=== PATIENT | female | born 1960 | race Caucasian/White ===

== ENCOUNTER 2019-09-14 14:21 | Observation (INO) | payer OTHER, SELFPAY ==
[2019-09-14] VITALS (9 sets, daily range): BP systolic 132–164; BP diastolic 79–110; PULSE 76–135; RESP 16–28; TEMP 36.4–36.7; O2SAT 96–99; BMI 35.6
--- NOTE | ~2019-09-14 | XR_ITS ---
XR chest 2V DATE: 09/14/2019 15:43 INDICATION: Shortness of breath. Irregular heart rate. TECHNIQUE: PA and lateral views COMPARISON: None FINDINGS: Surgical clips, right upper quadrant, consistent with cholecystectomy. Heart size is within normal range. No hilar or mediastinal enlargement. No pulmonary infiltrate or consolidation, pleural effusion or pulmonary vascular congestion or pneumo thorax. IMPRESSION: No active cardiopulmonary disease Reviewed, dictated and finalized at location A.
--- NOTE | 2019-09-14 14:34 | ECG_ITS ---
Measurements Intervals [place] Rate: 107 P: CT: 0 QRS: -22 QRSD: 82 T: 9 QT: 303 QTc: 406 Interpretive Statements ATRIAL FIBRILLATION WITH RAPID VENTRICULAR RESPONSE RSR' IN V1 OR V2, CONSIDER RIGHT VENTRICULAR HYPERTROPHY OR RIGHT VCD LOW QRS VOLTAGE IN PRECORDIAL LEADS BORDERLINE T WAVE ABNORMALITY- ANT/INF LEADS BASELINE WANDER- V3-V6 ABNORMAL ECG Electronically Signed On 09-14-2019 15:28:04 CDT by Huan Larson D.O.
[2019-09-14] MEDS: ASPIRIN 81 MG CHEWABLE TABLET 324 MG PO (14:37)
[2019-09-14 14:44] LABS: Basophils Percent Auto 0.3 % (0.2-1.2); Eosinophils Absolute Auto 0.1 K/mm3 (0-0.3); Eosinophils Percent Auto 1.2 % (0-4.4); Hematocrit 44.9 % (37.0-47.0); Hemoglobin 15.5 g/dL (12.0-15.0); Immature Granulocyte Absolute 0.02 K/mm3 (0.00-0.031); Immature Granulocyte Percent A 0.2 % (0-0.5); Lymphocytes Absolute Auto 3.31 K/mm3 (0.9-3.2); Lymphocytes Percent Auto 33.7 % (18.3-44.2); Mean Corpuscular HGB Conc 34.5 g/dl (32-36); Mean Corpuscular Hemoglobin 30.8 pg (26-34); Mean Corpuscular Volume 89.1 fl (80-100); Mean Platelet Volume 9.5 fl (7.4-10.4); Monocytes Absolute Auto 0.6 K/mm3 (0.1-0.6); Monocytes Percent Auto 6.4 % (2.6-8.5); Neutrophils Absolute Auto 5.7 K/mm3 (1.3-6.7); Neutrophils Percent Auto 58.2 % (45.5-73.1); Platelet Count Result 280 k/mm3 (150-375); Red Blood Count 5.04 M/mm3 (4.2-5.4); Red Cell Distribution Width 12.2 % (11.5-14.5); White Blood Count 9.8 K/mm3 (4.5-10.0)
--- NOTE | 2019-09-14 14:45 | ED.ARRPALP ---
HPI - Arrhythmia/Palpitations General Chief Complaint: Arrhythmia/Palpitations Stated Complaint: sob, cough Time Seen by Provider: 09/14/19 14:35 Source: patient Mode of arrival: ambulatory Limitations: no limitations History of Present Illness HPI narrative: Patient is a 59-year-old female who presents to the emergency department with complaint of shortness of breath and irregular heartbeat. Patient reports onset of symptoms 3 days ago. Patient has noted the palpitations seem somewhat intermittent in nature as does the shortness of breath. Patient thought perhaps maybe it was acid reflux and tried taking acid reducers without any relief. Patient denies any prior history of any cardiac issues, specifically atrial fibrillation. Patient has a sister with a history of atrial fibrillation. Patient denies any significant alcohol use, caffeine intake, decongestant use, stimulant use of any kind. complaint: irregular heart beat Onset (ago): day(s) Duration: intermittent Context: occurred during rest Associated symptoms: shortness of breath and other (Heartburn) Treatments prior to arrival: other (Acid reducers) Related Data Home Medications Medication Instructions Recorded Confirmed No Home Medications 09/14/19 09/14/19 Allergies Allergy/AdvReac Type Severity Reaction Status Date / Time bromide salts Allergy Dyspnea / Verified 09/14/19 14:36 SOB Review of Systems Review of Systems: All systems reviewed & are unremarkable except as noted in HPI and below Cardiovascular: Cardiovascular: Denies pedal edema, Denies edema, Reports irregular heart rhythm and Denies leg edema Respiratory: Respiratory: Denies cough and Reports dyspnea Gastrointestinal: Gastrointestinal: Denies abdominal pain and Denies vomiting PMFSH Past Medical History Medical History (Updated 09/14/19 @ 18:40 by Ramandeep Read MD) No significant past medical history Surgical History Surgical History (Updated 09/14/19 @ 15:13 by Ramandeep Read MD) History of cholecystectomy Family History Family History (Updated 09/14/19 @ 17:45 by Leyla Sparks RN) Mother Acute myocardial infarction Hypertension Mother Cerebrovascular accident Father Chronic obstructive pulmonary disease Social History Social History (Updated 09/14/19 @ 15:14 by Ramandeep Read MD) Smoking status: Never smoker Alcohol intake: current Drinks per week: 1 Alcohol use details: rare, mild Substance use: never Substance use type: does not use Gender identity (if verbalized by the patient): Female Spiritual care concerns: No Exam Const: General: cooperative, no acute distress and alert Nutritional Appearance: obese Orientation/consciousness: patient oriented x3 Limitations: no limitations Resp: Effort & Inspection: normal respiratory effort Auscultation: clear to auscultation bilaterally Cardio: Rate: tachycardic Rhythm: abnormal rhythm irregularly irregular Peripheral pulses: dorsalis pedis present bilateral 2+ GI: GI Palp: Yes Soft to palpation and No Tenderness to palpation present (GI) Auscultation: normal bowel sounds Skin: General skin exam: normal color and no rashes or lesions noted Neuro: General: patient oriented x3 Cognition (Neuro): normal cognition Speech: normal speech Extrem: General: normal to inspection, full ROM and pedal edema bilaterally pitting Psych: Mental Status: mental status grossly normal Affect: normal affect Attitude: cooperative Course Course Emergency Course: Patient given 10 mg of Cardizem IV with improvement in her heart rate. Heart rate decreased into the 80s, but increased back up to 100s. Additional Cardizem ordered. Patient has shortness of breath and lower extremity swelling suggestive of some degree of congestive heart failure and BNP is elevated. Patient does not have any hypoxia or pulmonary edema noted on chest x-ray. Patient will be admitted to hospitalist
[2019-09-14 14:54] LABS: INR 0.9; Partial Thromboplastin Time 23.1 SECONDS (22.3-36.8); Prothrombin Time 12.2 Seconds (11.1-14.7)
[2019-09-14 14:58] LABS: Blood Urea Nitrogen 19 mg/dL (7-17); Calcium 9.2 mg/dL (8.4-10.2); Carbon Dioxide 27 mmol/L (22-30); Chloride 105 mmol/L (98-107); Estimated CRCL calculation 69 ml/min; Estimated Glomerular Filt Rate 57; Glucose 114 mg/dL (65-105); Potassium 3.9 mmol/L (3.4-5.0); Sodium 139 mmol/L (137-145)
[2019-09-14 15:09] LABS: Troponin I < 0.012 ng/mL (0.000-0.034)
--- NOTE | 2019-09-14 15:09 | PC.NURSE ---
Called lab to add on orders
[2019-09-14 15:21] LABS: D Dimer 0.27 ug/mL (<0.48)
[2019-09-14 15:25] LABS: Alanine Aminotransferase 21 U/L (4-35); Albumin Level 4.5 g/dL (3.5-5.1); Alkaline Phosphatase 68 U/L (38-126); Aspartate Amino Transferase 25 U/L (14-36); Bilirubin,Total 0.4 mg/dL (0.2-1.3); Magnesium 1.9 mg/dL (1.6-2.3)
[2019-09-14 15:34] LABS: NT Pro B Type Natriuretic Pept 1160 PG/ML (5-100)
--- NOTE | 2019-09-14 17:54 | ADMGEN ---
This patient, Aure Contreras, was admitted to IMU Room 209-01. Patient/family oriented to hospital policies and general routines including ID bracelet, bed and alarms, visiting hours, pain management, procedures, bathroom and other care routines, personal items, smoking policy, room service/diet, and visiting hours. Valuables list has been completed. Information on how to activate the Rapid Response Team has been discussed. Patient/Family are encouraged to report perceived risks to care and to ask questions if they do not understand what they are told or what they should do.
[2019-09-14 18:09] LABS: Troponin I < 0.012 ng/mL (0.000-0.034)
[2019-09-14 20:34] LABS: Troponin I < 0.012 ng/mL (0.000-0.034)
[2019-09-14] MEDS: METOPROLOL TARTRATE 25 MG TABLET PO (20:45)
--- NOTE | 2019-09-14 23:34 | PM.IMHP ---
H&P: HPI History of Present Illness Chief complaint: atrial fibrillation with rvr Narrative: Aure Contreras is a 59 year old female she has no prior medical history. She has never had any irregular heart rate. The patient stated that she has ?panic attacks?. Where she feels anxious and feels palpitations. She denies any nausea vomiting or diarrhea. No fever chills. Her sister has atrial fibrillation but the patient has never had atrial fib pressure. The patient stated that she started feeling ill on Thursday. She felt some palpitations. She thought maybe wishes her nerves. Patient is going through divorce and living with her son right now. The patient stated that on Thursday morning the palpitations slow down some and she could tolerate them. So she went to work and the symptoms never went away. The patient stated that his symptoms remain for the last 3 days and so she decided that she needed to come to the emergency room. Then she thought maybe it is just her nurse her acid reflux. She said that she could feel the palpitations throughout her whole body. She felt like her whole body was pounding. The patient has not had an echo in 5 years. She has a take any home medications. She was given an aspirin and given 2 doses of IV Cardizem push cardiology has been consulted. Oral medication has been ordered for the patient. No acute cardiopulmonary disease. X2. BNP is 1160. Patient denies any shortness of breath at this time. No chest pain at this time. She denies taking any [id number]-neb-[id number] medication any caffeine intake, decongestant use, illicit drugs. Her any kind of stimulants of any kind. She denies using any energy drinks. Patient stated that she occasionally does get short of breath but is not short of breath now. Patient stated that she has been having these episodes on and off for years but the 3rd just panic attacks. Date of service 09/14/2019 Review of Systems Review of Systems: All systems reviewed & are unremarkable except as noted in HPI and below Constitutional: Constitutional: Reports as per HPI and Reports no additional constitutional complaints Eyes: Eyes: Reports as per HPI and Reports no additional eye complaints ENT: Reports system reviewed and no additional complaints, except as documented and Reports Normal hearing present Cardiovascular: Cardiovascular: Reports no additional cardiovascular complaints Respiratory: Respiratory: Reports no additional respiratory complaints and Reports no additional respiratory complaints Gastrointestinal: Gastrointestinal: Reports as per HPI and Reports no additional gastrointestinal complaints Musculoskeletal: Musculoskeletal: Reports no additional musculoskeletal complaints Integumentary/Breasts: Skin/Breast: Reports system reviewed and no additional complaints, except as docu and Reports as per HPI Neurologic: Reports system reviewed and no additional complaints, except as documented, Reports as per HPI and Reports Normal hearing present Psychiatric: Psychiatric: Reports no additional psychiatric complaints and Reports as per HPI Endocrine: Endocrine: Reports no additional endocrine complaints Hematologic/Lymphatic: Hematologic/Lymphatic: Reports no additional hematologic/lymphatic complaints Allergic/Immunologic: Allergic/Immunologic: Reports no additional allergic/immunologic complaints [facility] Past Medical History Medical History (Updated 09/14/19 @ 23:42 by Nancy Dsouza NP) Anxiety Carpal tunnel syndrome No significant past medical history Surgical History Surgical History (Updated 09/14/19 @ 23:42 by Nancy Dsouza NP) History of carpal tunnel release Right hand History of cholecystectomy Family History Family History Mother Acute myocardial infarction Hypertension Mother Cerebrovascular accident Father Chronic obstructive pulmonary disease Social History Social History (Updated
[2019-09-15] VITALS (13 sets, daily range): BP systolic 117–145; BP diastolic 68–97; PULSE 63–128; RESP 16–20; TEMP 35.9–36.6; O2SAT 96–100
[2019-09-15 05:40] LABS: Basophils Percent Auto 0.4 % (0.2-1.2); Eosinophils Absolute Auto 0.2 K/mm3 (0-0.3); Eosinophils Percent Auto 1.6 % (0-4.4); Hematocrit 43.1 % (37.0-47.0); Hemoglobin 14.3 g/dL (12.0-15.0); Immature Granulocyte Absolute 0.03 K/mm3 (0.00-0.031); Immature Granulocyte Percent A 0.3 % (0-0.5); Lymphocytes Percent Auto 39.9 % (18.3-44.2); Mean Corpuscular HGB Conc 33.2 g/dl (32-36); Mean Corpuscular Hemoglobin 30.6 pg (26-34); Mean Corpuscular Volume 92.3 fl (80-100); Monocytes Absolute Auto 0.8 K/mm3 (0.1-0.6); Monocytes Percent Auto 8.2 % (2.6-8.5); Neutrophils Absolute Auto 4.9 K/mm3 (1.3-6.7); Neutrophils Percent Auto 49.6 % (45.5-73.1); Platelet Count Result 252 k/mm3 (150-375); Red Blood Count 4.67 M/mm3 (4.2-5.4); Red Cell Distribution Width 12.4 % (11.5-14.5); White Blood Count 9.8 K/mm3 (4.5-10.0)
[2019-09-15 05:56] LABS: Alanine Aminotransferase 17 U/L (4-35); Albumin Level 3.8 g/dL (3.5-5.1); Alkaline Phosphatase 54 U/L (38-126); Aspartate Amino Transferase 22 U/L (14-36); Bilirubin,Total 0.7 mg/dL (0.2-1.3); Blood Urea Nitrogen 20 mg/dL (7-17); Calcium 9.1 mg/dL (8.4-10.2); Carbon Dioxide 29 mmol/L (22-30); Chloride 105 mmol/L (98-107); Estimated CRCL calculation 68 ml/min; Estimated Glomerular Filt Rate 57; Glucose 97 mg/dL (65-105); Magnesium 2.1 mg/dL (1.6-2.3); Sodium 139 mmol/L (137-145)
--- NOTE | 2019-09-15 08:22 | PM.CNCAR ---
Assessment and Plan Assessment and plan (1) Atrial fibrillation with rapid ventricular response: Code(s): I48.91 - Unspecified atrial fibrillation Status: Acute Assessment and Plan: 59 y/o female with no significant past medical history who presents with palpitations and dyspnea on exertion who was found to be in A fib with RVR Will check 2D echo to rule out structural heart disease Heart rate better compared to yesterday. Will increase Metoprolol to 50 mg BID for better rate control. Continue full dose ASA for now given CHADSVASC of 0. If echo shows LV dysfunction then would start AC as in that case she will benefit from rhythm control approach with cardioversion. BNP is 1100 but no evidence of volume overload on exam. Will follow 2D echo Given no clear underlying etiology of A fib, she would benefit from ischemic evaluation at some point (likely outpatient once HR better controlled) (2) Overweight: Code(s): E66.3 - Overweight Status: Acute History of Present Illness History of Present Illness Consult date/time: 09/15/19 08:22 59 y/o female with no significant past medical history who presented with palpitations. She reports on and off palpitations described as feeling heart bounding strong and fast for the last 3-4 days. She also reports being told by her mother when talks to her on the phone that she sounds short of breath and that has been ongoing for few weeks. She denies chest pain, lightheadedness or dizziness. She decided to seek medical attention yesterday after palpitations persisted for long period of time. She was noted in be in A fib with RVR with HR ~130s. She received IV cardizem and was started on metoprolol 25 mg BID. She remains in A fib this am and her current HR is ~ 120. She feels much better compared to yesterday. She reports feeling anxiety and panic attacks for few years that she wonders now if was A fib. EKG show A fib with HR 107. Labs are unremarkable except for BNP 1100. TSH was within normal limits. She denies tobacco or drug abuse. She drinks beer occasionally. Denies excessive coffee intake. She has family history of A fib (sister) Reason For Visit: atrial fibrillation with rvr Review of Systems Review of Systems: All systems reviewed & are unremarkable except as noted in HPI and below Constitutional: Constitutional: Denies fatigue and Denies headache(s) Eyes: Eyes: Denies blurry vision ENT: Reports Normal hearing present and Denies headache(s) Cardiovascular: Cardiovascular: Denies chest pain, Denies diaphoresis, Denies pedal edema, Denies leg edema, Denies lightheadedness, Denies palpitations and Denies dyspnea Respiratory: Respiratory: Denies cough and Denies dyspnea Gastrointestinal: Gastrointestinal: Denies abdominal pain Musculoskeletal: Musculoskeletal: Denies back pain Neurologic: Reports Normal hearing present and Denies headache(s) Psychiatric: Psychiatric: Denies anxiety Endocrine: Endocrine: Denies fatigue and Denies palpitations PMFSH Past Medical History Medical History (Updated 09/15/19 @ 08:46 by Daja Pat MD) Anxiety Carpal tunnel syndrome No significant past medical history Surgical History Surgical History (Updated 09/14/19 @ 23:42 by Nancy Dsouza NP) History of carpal tunnel release Right hand History of cholecystectomy Family History Family History Mother Acute myocardial infarction Hypertension Mother Cerebrovascular accident Father Chronic obstructive pulmonary disease Social History Social History (Updated 09/14/19 @ 23:43 by Nancy Dsouza NP) Social History: The patient is getting . She has been for approximately 36 years and shortly after her anniversary they split up. She is currently living with her son and grandson. She has 3 sons. 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 She has never smoked she denies any marijuan
[2019-09-15] MEDS: METOPROLOL TARTRATE 25 MG TABLET PO ×2 (08:38→10:55)
--- NOTE | 2019-09-15 09:38 | ECHO_ITS ---
Patient Info Name: Aure Contreras Age: 59 years : 1960 Gender: Female Ht: 67 in Wt: 227 lbs BSA: 2.25 m2 HR: 63 bpm BP: 117 / 68 mmHg Technical Quality: Good Exam Date: 09/15/2019 10:02 AM Exam Location: [facility] Pulmonary Exam Room: 209 Patient Status: Inpatient Admit Date: 09/14/2019 Staff Ordering Physician: Nancy Dsouza NP Devulcanizer Charger: Neeta Padilla RDCS Attending Provider: Yordan Pascal MD Referring Physician: Meet JACOBSON; Exam Type: CA echo doppler color flow Study Info Indications - NEW ONSET AFIB SOB Complete two-dimensional, color flow and Doppler transthoracic echocardiogram is performed. Summary 1. Left ventricular systolic function is normal, estimated at 60-65%. 2. There is mild aortic valve regurgitation. Left Ventricle Left ventricular chamber dimension is normal. Left ventricular systolic function is normal, estimated at 60-65%. There is no increased left ventricular wall thickness. Left ventricular septal wall motion is normal. The left ventricular diastolic function is normal. Right Ventricle Right ventricular chamber dimension is normal. Right ventricular systolic function is normal. Left Atria Left atrial chamber dimension is mildly enlarged. Right Atria Right atrial chamber dimension is normal. Aortic Valve The aortic valve is trileaflet. There is no aortic valve sclerosis. There is no aortic valve stenosis. There is mild aortic valve regurgitation. Pulmonic Valve The pulmonic valve is normal. There is no pulmonic valve stenosis. There is no pulmonic regurgitation. Mitral Valve The mitral valve has normal leaflets. There is no mitral valve stenosis. There is trace mitral valve regurgitation. Tricuspid Valve The tricuspid valve leaflets are normal. There is no significant tricuspid valve stenosis. There is no tricuspid valve regurgitation. No pulmonary hypertension, estimated pulmonary arterial systolic pressure is 32 mmHg. Pericardium/Pleural The pericardium appears normal. There is no pericardial effusion. Inferior Vena Cava Normal inferior vena cava with >50% collapse upon inspiration consistent with Empty right atrial pressure, 10 mmHg. Aorta The aortic root size at the sinus of Valsalva is normal. The prox ascending aorta size is normal. Left Ventricular Outflow Tract Name Value Normal LVOT 2D LVOT Diameter 2.0 cm LVOT Doppler LVOT Peak Gradient 6 mmHg LVOT Mean Gradient 3 mmHg LVOT VTI 20 cm LVOT VTI/AV VTI Ratio 0.8 LVOT Stroke Volume 64 ml LVOT CO 15.2 l/min LVOT CI 6.8 l/min/m2 Pulmonic Valve Name Value Normal PV Doppler PV
[2019-09-15] MEDS: ASPIRIN 325 MG TABLET PO (10:55)
--- NOTE | 2019-09-15 18:04 | PM.DS ---
DS: Diagnosis Admitting Diagnosis Admitting Diagnosis: Unspecified atrial fibrillation Discharge Diagnosis (1) Atrial fibrillation with rapid ventricular response: Code(s): I48.91 - Unspecified atrial fibrillation Status: Acute Assessment and Plan: This is new onset of AFib. Her sister also has AFib and understands what it is. The patient stated that she has had these panic attacks for on and off for a while and did realize that she was going in and out of AFib. Patient's chads Vasc score is 0 and she was given an aspirin today so I did not anticoagulate the patient. Cardiology has been consulted. She is now on oral metoprolol. Further recommendation per Cardiology. Troponins have been negative x2. I did order an echo for her. (2) Anxiety: Code(s): F41.9 - Anxiety disorder, unspecified Status: Chronic Assessment and Plan: Most likely due to her palpitations. I will order some p.r.n. Ativan. DS: Summary Hospital Course Reason for hospitalization: Aure Contreras is a 59 year old female she has no prior medical history. She has never had any irregular heart rate. The patient stated that she has ?panic attacks?. Where she feels anxious and feels palpitations. She denies any nausea vomiting or diarrhea. No fever chills. Her sister has atrial fibrillation but the patient has never had atrial fib pressure. The patient stated that she started feeling ill on Thursday. She felt some palpitations. She thought maybe wishes her nerves. Patient is going through divorce and living with her son right now. The patient stated that on Thursday morning the palpitations slow down some and she could tolerate them. So she went to work and the symptoms never went away. The patient stated that his symptoms remain for the last 3 days and so she decided that she needed to come to the emergency room. Then she thought maybe it is just her nurse her acid reflux. She said that she could feel the palpitations throughout her whole body. She felt like her whole body was pounding. The patient has not had an echo in 5 years. She has a take any home medications. She was given an aspirin and given 2 doses of IV Cardizem push cardiology has been consulted. Oral medication has been ordered for the patient. No acute cardiopulmonary disease. X2. BNP is 1160. Patient denies any shortness of breath at this time. No chest pain at this time. She denies taking any zlpl-dgr-jnpecyv medication any caffeine intake, decongestant use, illicit drugs. Her any kind of stimulants of any kind. She denies using any energy drinks. Patient stated that she occasionally does get short of breath but is not short of breath now. Patient stated that she has been having these episodes on and off for years but the 3rd just panic attacks. Date of service 09/14/2019 Hospital Course: This is new onset of AFib. Her sister also has AFib and understands what it is. The patient stated that she has had these panic attacks for on and off for a while and did realize that she was going in and out of AFib. Patient's chads Vasc score is 0 and she was given an aspirin today so I did not anticoagulate the patient. Cardiology has been consulted. She is now on oral metoprolol. Further recommendation per Cardiology. Troponins have been negative x2. Patient seen by Cardiology started the patient on metoprolol, patient does not need anticoagulation except full dose aspirin, her cardiac echo is essentially normal patient is clinically stable will discharge the patient. Status at Discharge Functional status at discharge: independent ambulation Overall status at discharge: patient is back to baseline Time Spent with Patient Time attestation: Total time spent providing and/or coordinating discharge services: Patient was seen and examined at the time of the discharge Condition at discharge is stable Code status: Full code. Time spent preparing discharge summary, discharge medicati
== END 2019-09-15 17:00 | disposition home or self-care (01) ==
LOC: ANHED 16:52 → ANHIMU 18:40
PROVIDERS: Nurse Practitioner; Admitting Provider Internal Medicine; Emergency Provider Emergency Medicine; PCP Family Medicine; Visit Provider Family Medicine
DX: I48.91 Unspecified atrial fibrillation (principal); F41.9 Anxiety disorder, unspecified; E66.3 Overweight; Z68.35 Body mass index [BMI] 35.0-35.9, adult; R06.02 Shortness of breath
CPT/HCPCS: 36415; 71046; 80048; 80053; 80076; 83735; 83880; 84443; 84484; 85025; 85380; 85610; 85730; 93005; 93306; 96374; 96376; 99285; A9270; G0378

== ENCOUNTER → 2021-02-04 12:25 | Outpatient (CLI) | payer OTHER, SELFPAY ==
--- NOTE | ~2021-02-04 | XR_ITS ---
EXAMINATION: XR knee RT 3V DATE: 02/04/2021 12:55 INDICATION: Right knee pain. TECHNIQUE: 3 views of right knee were obtained. COMPARISON: None. FINDINGS: Bone alignment is normal. No fracture. There is mild tricompartmental osteoarthritis charac terized by marginal osteophytes. No joint space narrowing. No knee joint effusion. IMPRESSION: 1. Mild right knee osteoarthritis. Reviewed, dictated and finalized at location A.
--- NOTE | ~2021-02-04 | XR_ITS ---
XR hip RT 2V w AP pelvis DATE: 02/04/2021 12:54 INDICATION: Right hip pain, right knee pain TECHNIQUE: AP pelvis. AP and lateral views of right hip. COMPARISON: None FINDINGS: There is levoscoliosis and degenerative disc disease of the lumbar spine. There is degenerative change at the pubic symphysis. The sacroiliac joints are intact. No pelvic fracture or bone destruction. No fracture, dislocation, avascular necrosis or bone destruction of the right hip. IMPRESSION: Mild levoscoliosis and multilevel degenerative disc disease of the lumbar spine Degenerative change at the pubic symphysis No pelvic or right hip fracture or dislocation Reviewed, dictated and finalized at location A.
== END ==
PROVIDERS: PCP Family Medicine; Visit Provider Family Medicine
DX: M25.561 Pain in right knee (principal); M41.86 Other forms of scoliosis, lumbar region; M51.36 Other intervertebral disc degeneration, lumbar region; M17.11 Unilateral primary osteoarthritis, right knee
CPT/HCPCS: 73502; 73562

== ENCOUNTER → 2022-06-13 12:34 | Outpatient (CLI) | payer OTHER, SELFPAY ==
--- NOTE | ~2022-06-13 | XR_ITS ---
Left Shoulder Technique: AP and scapular Y views were obtained. Clinical History: Chronic pain Findings: No fracture or dislocation is seen. Osseous alignment is anatomic. There is mild degenerati ve change of the glenohumeral and acromion clavicular joints. Possible small intra-articular loose cornelia dy in the axillary pouch of the glenohumeral joint. Soft tissues are unremarkable. Impression: Mild degenerative changes, as above. Possible small intra-articular loose body in the axillary pouch of the glenohumeral joint. Reviewed, dictated and finalized at location M. L [employer]PERATOR WHISKEY Impression: Mild degenerative changes, as above. Possible small intra-articular loose body in the axillary pouch of the glenohum eral joint.
== END ==
PROVIDERS: PCP Nurse Practitioner Family; Visit Provider Nurse Practitioner Family
DX: M25.512 Pain in left shoulder (principal); G89.29 Other chronic pain
CPT/HCPCS: 73030

== ENCOUNTER → 2023-10-06 14:23 | Outpatient (CLI) | payer OTHER, SELFPAY ==
--- NOTE | ~2023-10-06 | XR_ITS ---
XR heel RT min 2V Ordering provider: Alicia Heller, CCT History: . NKI, GEN PAIN . Comparison: None. FINDINGS: BONES: No acute fracture or dislocation. JOINT SPACES: Well maintained. SOFT TISSUES: Ossification of the insertion of the tendo Achilles. IMPRESSION: No acute osseous abnormality. Reviewed, dictated and finalized at location A.
== END ==
PROVIDERS: PCP Nurse Practitioner Family; Visit Provider Nurse Practitioner Family
DX: M79.671 Pain in right foot (principal)
CPT/HCPCS: 73650